=== PATIENT | female | born 1975 | race Asian ===

== ENCOUNTER 2018-12-27 02:14 | Emergency (ER) | payer OTHER ==
[2018-12-27 02:58] LABS: Hematocrit 34.9 % (30.3-42.9); Mean Corpuscular HGB Conc 34 % (30-34); Mean Corpuscular Volume 74 fl (79-97); Platelet Count 247 K/mm3 (140-440); Red Blood Count 4.71 M/mm3 (3.65-5.03)
[2018-12-27 03:20] LABS: Alanine Aminotransferase 12 units/L (7-56); Albumin 3.7 g/dL (3.9-5); BUN/Creatinine Ratio 15; Blood Urea Nitrogen 12 mg/dL (7-17); Calcium 9.3 mg/dL (8.4-10.2); Hemolysis Index 2
[2018-12-27 03:29] LABS: Red Cell Distribution Width 24.5 % (13.2-15.2)
[2018-12-27] MEDS ORDERED: NACL 0.9% 1000 ML 1,000 ML IV ONE (04:12)
[2018-12-27] MEDS ORDERED: ZOFRAN IV ONE (04:12)
[2018-12-27] MEDS ORDERED: BENTYL IM ONE (04:12)
--- NOTE | 2018-12-27 04:32 | XRay Report ---
PROCEDURE: XR ABDOMEN 1V AP TECHNIQUE: Abdominal radiograph, single view. HISTORY: abdominal pain / ? constipation COMPARISONS: None . FINDINGS: Bowel gas pattern: Nonobstructive . Moderate amount of retained fecal content. Masses or calcifications: None . Bony structures: No significant abnormality . Other: None . IMPRESSION: No acute abnormality. Moderate amount of retained fecal content. This document is electronically signed by Addison Cortez MD., December 27 2018 04:30:52 AM ET
--- NOTE | 2018-12-27 04:50 | Emergency Department Report ---
ED Abdominal Pain HPI - General Chief Complaint: Abdominal Pain Stated Complaint: ABD PAIN Time Seen by Provider: 12/27/18 03:34 Source: patient Mode of arrival: Ambulatory Limitations: No Limitations - History of Present Illness Initial Comments: Patient's 43-year-old -[place] female who presents for abdominal pain bilateral right and left lower quadrant hard stools symptoms described as cramping patient denies nausea vomiting no fever chills no dysuria no vaginal bleeding last bowel movement was this a.m. described as rabbit's pellets hard around balls Complaint: abdominal pain Onset/Timin -: days(s) Location: LLQ, RLQ Radiation: LLQ Migration to: LLQ, RLQ Severity: moderate Severity scale (0 -10): 10 Quality: cramping Consistency: constant Improves With: nothing Worsens With: eating Context: other (constipation) Associated Symptoms: constipation, anorexia. denies: dysuria, hematemesis, hematochezia, melena - Related Data LMP Date: 12/20/18 Previous Rx's Medication Instructions Recorded Last Taken Type Bisacodyl [Dulcolax suppos] 10 mg GA QDAY 5 Days #10 supp.rect 12/27/18 Unknown Rx Polyethylene Glycol 3350 [Miralax 17 gm PO BID 1 Days #20 packet 12/27/18 Unknown Rx 3350] Allergies Allergy/AdvReac Type Severity Reaction Status Date / Time No Known Allergies Allergy Unverified 12/27/18 02:22 ED Review of Systems ROS: Stated complaint: ABD PAIN Other details as noted in HPI Constitutional: denies: chills, fever Eyes: denies: eye pain, eye discharge, vision change ENT: denies: ear pain, throat pain Respiratory: denies: cough, shortness of breath, wheezing Cardiovascular: denies: chest pain, palpitations Endocrine: no symptoms reported Gastrointestinal: abdominal pain, nausea, vomiting, constipation. denies: diarrhea, melena, hematochezia Genitourinary: denies: urgency, dysuria, discharge Musculoskeletal: denies: back pain, joint swelling, arthralgia Skin: denies: rash, lesions Neurological: denies: headache, weakness, numbness, paresthesias, confusion, vertigo Psychiatric: denies: anxiety, depression Hematological/Lymphatic: denies: easy bleeding, easy bruising ED Past Medical Hx - Past Medical History Previous Medical History?: Yes Hx Hypertension: Yes Hx Asthma: Yes - Surgical History Past Surgical History?: No - Social History Smoking Status: Never Smoker Substance Use Type: None - Medications Home Medications: Home Medications Medication Instructions Recorded Confirmed Last Taken Type Bisacodyl [Dulcolax suppos] 10 mg GA QDAY 5 Days #10 supp.rect 12/27/18 Unknown Rx Polyethylene Glycol 3350 [Miralax 17 gm PO BID 1 Days #20 packet 12/27/18 Unknown Rx 3350] ED Physical Exam - General Limitations: No Limitations General appearance: alert, in no apparent distress - Head Head exam: Present: atraumatic, normocephalic - Eye Eye exam: Present: normal appearance, PERRL, EOMI Pupils: Present: normal accommodation - ENT ENT exam: Present: mucous membranes moist. Absent: normal orophraynx, TM's normal bilaterally - Neck Neck exam: Present: normal inspection, full ROM. Absent: tenderness, lymphad enopathy - Respiratory Respiratory exam: Present: normal lung sounds bilaterally. Absent: respiratory distress, wheezes, rhonchi, chest wall tenderness, accessory muscle use, decreased breath sounds - Cardiovascular Cardiovascular Exam: Present: regular rate, normal rhythm, normal heart sounds. Absent: systolic murmur, diastolic murmur, rubs, gallop - GI/Abdominal GI/Abdominal exam: Present: soft, distended (mild distention, ), hyperactive bowel sounds. Absent: tenderness, guarding, rebound, mass, bruit, hernia - Rectal Rectal exam: Present: deferred - External exam: Present: other (exam deferred ) - Extremities Exam Extremities exam: Present: normal inspection - Back Exam Back exam: Present: normal inspection, full ROM. Absent: tenderness, CVA tenderness (R), CVA tenderness (L), muscle spasm, paraspinal tenderness, vertebral tenderness, rash noted - Neurological Exam Neurological exam: Present: alert, oriented X3, CN II-XII intact, normal gait, reflexes normal. Absent: motor sensory deficit - Expanded Neurological Exam Expanded Patient oriented to: Present: person, place, time Speech: Present: fluid speech Cranial nerves: EOM's Intact: Normal, Gag Reflex: Normal, Tongue Deviation: Normal, Nystagmus: Normal, Facial Sensation: Normal, Facial Palsy with Forehead Movement: Normal, Facial Palsy without Forehead Movement: Normal Cerebellar function: Finger to Nose: Normal, Romberg: Normal Upper motor neuron: Benjamin Neglect: Normal, Pronator Drift: Normal, Babinski Sign: Normal, Sensory Extinction: Normal Motor strength exam: RUE: 5, LUE: 5, RLE: 5, LLE: 5 DTR: bicep (R): 2+, bicep (L): 2+, ankle (R): 2+, ankle (L): 2+ Best Eye Response (Alon): (4) open spontaneously Alon Total: 4 - Psychiatric Psychiatric exam: Present: normal affect, normal mood - Skin Skin exam: Present: warm, dry, intact, normal color. Absent: rash, cyanosis, erythema, abrasion ED Course Vital Signs 12/27/18 12/27/18 02:18 02:55 Temperature 99.6 F Pulse Rate 122 H 109 H Respiratory 18 20 Rate Blood Pressure 171/120 Blood Pressure 156/100 [Left] O2 Sat by Pulse 97 98 Oximetry ED Medical Decision Making - Lab Data Result diagrams: 12/27/18 02:40 12/27/18 02:40 Lab Results 12/27/18 12/27/18 12/27/18 Range/Units 02:40 02:40 02:40 WBC 12.3 H (4.5-11.0) K/mm3 RBC 4.71 (3.65-5.03) M/mm3 Hgb 12.0 (10.1-14.3) gm/dl Hct 34.9 (30.3-42.9) % MCV 74 L (79-97) fl MCH 25 L (28-32) pg MCHC 34 (30-34) % RDW 24.5 H (13.2-15.2) % Plt Count 247 (140-440) K/mm3 Sodium 138 (137-145) mmol/L Potassium 3.3 L (3.6-5.0) mmol/L Chloride 100.5 (98-107) mmol/L Carbon Dioxide 24 (22-30) mmol/L Anion Gap 17 mmol/L BUN 12 (7-17) mg/dL Creatinine 0.8 (0.7-1.2) mg/dL Estimated GFR > 60 ml/min BUN/Creatinine Ratio 15 % Glucose 123 H (65-100) mg/dL Calcium 9.3 (8.4-10.2) mg/dL Total Bilirubin 0.30 (0.1-1.2) mg/dL AST 15 (5-40) units/L ALT 12 (7-56) units/L Alkaline Phosphatase 75 (35-129) units/L Total Protein 7.3 (6.3-8.2) g/dL Albumin 3.7 L (3.9-5) g/dL Albumin/Globulin Ratio 1.0 % HCG, Qual Negative (Negative) Urine Bilirubin (Negative) Urine RBC (Auto) (0.0-6.0) /HPF U Epithel Cells (Auto) (0-13.0) /HPF 12/27/18 Range/Units 03:45 WBC (4.5-11.0) K/mm3 RBC (3.65-5.03) M/mm3 Hgb (10.1-14.3) gm/dl Hct (30.3-42.9) % MCV (79-97) fl MCH (28-32) pg MCHC (30-34) % RDW (13.2-15.2) % Plt Count (140-440) K/mm3 Sodium (137-145) mmol/L Potassium (3.6-5.0) mmol/L Chloride (98-107) mmol/L Carbon Dioxide (22-30) mmol/L Anion Gap mmol/L BUN (7-17) mg/dL Creatinine (0.7-1.2) mg/dL Estimated GFR ml/min BUN/Creatinine Ratio % Glucose (65-100) mg/dL Calcium (8.4-10.2) mg/dL Total Bilirubin (0.1-1.2) mg/dL AST (5-40) units/L ALT (7-56) units/L Alkaline Phosphatase (35-129) units/L Total Protein (6.3-8.2) g/dL Albumin (3.9-5) g/dL Albumin/Globulin Ratio % HCG, Qual (Negative) Urine Bilirubin Neg (Negative) Urine RBC (Auto) 2.0 (0.0-6.0) /HPF U Epithel Cells (Auto) 8.0 (0-13.0) /HPF - Radiology Data Radiology results: report reviewed, image reviewed Ordering Physician: MARIELA NOVAK NP Date of Service: 12/27/18 Procedure(s): XR abdomen 1V ap Accession Number(s): [id number] cc: MARIELA NOVAK NP Fluoro Time In Minutes: PROCEDURE: XR ABDOMEN 1V AP TECHNIQUE: Abdominal radiograph, single view. HISTORY: abdominal pain / ? constipation COMPARISONS: None . FINDINGS: Bowel gas pattern: Nonobstructive . Moderate amount of retained fecal content. Masses or calcifications: None . Bony structures: No significant abnormality . Other: None . IMPRESSION: No acute abnormality. Moderate amount of retained fecal content. This document is electronically signed by Jenny Cortez MD., December 27 2018 04:30:52 AM ET Transcribed By: RB Dictated By: JENNY CORTEZ MD Electronically Authenticated By: JENNY CORTEZ MD Signed Date/Time: 12/27/18431 DD/ 4 TD/TT: 12/27/18424 - Medical Decision Making this is constipation , kub modarate bowel loading, plan, miralax, dulcolax sup p, vital sign signs now improved, pt tolerated id stress. Critical care attestation.: If time is entered above; I have spent that time in minutes in the direct care of this critically ill patient, excluding procedure time. ED Disposition Clinical Impression: Constipation Qualifiers: Constipation type: unspecified constipation type Qualified Code(s): K59.00 - Constipation, unspecified Disposition: -01 TO HOME OR SELFCARE Is pt being admited?: No Does the pt Need Aspirin: No Condition: Stable Instructions: Abdominal Pain (ED), Constipation (ED) Prescriptions: Bisacodyl [Dulcolax suppos] 10 mg GA QDAY 5 Days #10 supp.rect Polyethylene Glycol 3350 [Miralax 3350] 17 gm PO BID 1 Days #20 packet [facility] MELISSA [Primary Care Provider] - 3-5 Days Time of Disposition: 05:03
[2018-12-27 04:51] LABS: Bacteria,Urine 1+ /HPF (Negative); Bilirubin,Urine NEG (Negative); Blood,Urine NEG (Negative); Color,Urine Yellow (Yellow); Mucus,Urine FEW /HPF; Protein,Urine <15 mg/dL mg/dL (Negative); Urobilinogen,Urine < 2.0 mg/dL (<2.0)
[2018-12-27 06:01] VITALS: BP 144/95
[2018-12-27 06:32] LABS: Anisocytosis 1+; Platelet Estimate Consistent w Auto; Total Cells Counted 100
== END 2018-12-27 06:15 | disposition home or self-care (01) ==
LOC: ED 02:14
DX: K59.00 Constipation, unspecified (principal); I10 Essential (primary) hypertension; J45.909 Unspecified asthma, uncomplicated
CPT/HCPCS: 36415; 74018; 80053; 81001; 84703; 85007; 85025; 87086; 96372; 96374; 99284; J0500; J2405; J7030

== ENCOUNTER 2019-07-02 22:28 | Emergency (ER) | payer OTHER ==
[2019-07-02 22:53] VITALS: BP 195/124
== END 2019-07-03 09:17 | disposition left against medical advice (07) ==
LOC: ED 22:28
DX: I10 Essential (primary) hypertension (principal); Z53.21 Procedure and treatment not carried out due to patient leaving prior to being seen by health care provider